=== PATIENT | female | born 1980 | race Caucasian/White ===

== ENCOUNTER 2017-03-23 23:15 | Inpatient (IN) | payer BC ==
[~2017-03-23] VITALS: Ht 167.6 cm; Wt 82.0 kg
[~2017-03-23 23:15] MED LIST: DOCU-30 PO; HYDR-3240 PO; IBUP-1222 PO
[2017-03-23] MEDS ORDERED: OXYTOCIN 30U/ 0.9% NaCL 500ML 500 ML IV PRN (23:36)
[2017-03-23] MEDS ORDERED: OXYTOCIN 30U/ 0.9% NaCL 500ML 500 ML IV ONE (23:36)
[2017-03-23] MEDS ORDERED: D5%-LACTATED RINGERS 1,000 ML IV SCH (23:36)
[2017-03-23] MEDS ORDERED: NEWBORN KIT ONE (23:59)
[2017-03-23] MEDS ORDERED: OXYTOCIN 30U/ 0.9% NaCL 500ML 500 ML ONE (23:59)
[2017-03-23] MEDS ORDERED: LIDOCAINE 1%, 20ML ONE (23:59)
[2017-03-23] MEDS ORDERED: MISOPROSTOL 200 MCG TABLET ONE (23:59)
[2017-03-24] MEDS ORDERED: ONDANSETRON 2MG/ML, 2ML IVPush PRN
[2017-03-24] MEDS ORDERED: FENTANYL PF 100 MCG/2ML IVPush PRN
[2017-03-24] MEDS: LACTATED RINGERS 1,000 ML IV SCH ×3 (00:03→12:04)
[2017-03-24 00:37] VITALS: BP 113/71
[2017-03-24] MEDS: LACTATED RINGERS 1,000 ML IVBOLUS PRN ×3 (07:45→10:54)
[2017-03-24] MEDS ORDERED: FENTANYL PF 100 MCG/2ML ONE (07:55)
[2017-03-24] MEDS: FENTANYL PF 100 MCG/2ML IV PRN ×2 (08:00→08:42)
[2017-03-24] MEDS ORDERED: FENTANYL/BUPIV./NS/PF 250 ML EPIDCONT SCH ×2 (08:17→09:12)
[2017-03-24] MEDS ORDERED: FENTANYL/BUPIV./NS/PF 250 ML EPIDCONT ONE (08:49)
[2017-03-24] MEDS ORDERED: LIDOCAINE/PF 1.5%-EPI 1:200K, 30ML ONE (08:50)
[2017-03-24] MEDS ORDERED: LACTATED RINGERS 1,000 ML IV SCH (09:12)
[2017-03-24] MEDS ORDERED: LACTATED RINGERS 1,000 ML IVBOLUS PRN (09:30)
[2017-03-24] MEDS ORDERED: ONDANSETRON 2MG/ML, 2ML IV PRN (17:00)
[2017-03-24] MEDS ORDERED: CALCIUM CARBONATE 500 MG TAB.CHEW PO PRN (17:00)
[2017-03-24] MEDS ORDERED: METHYLERGONOVINE 0.2 MG/ML IM PRN (17:00)
[2017-03-24] MEDS ORDERED: ACETAMINOPHEN 325 MG TABLET PO PRN (17:00)
[2017-03-24] MEDS ORDERED: MISOPROSTOL 200 MCG TABLET PR PRN (17:00)
[2017-03-24] MEDS ORDERED: CARBOPROST TROMETHAMINE 250 MCG/ML, 1ML IM PRN (17:00)
[2017-03-24] MEDS ORDERED: HYDROcodone/APAP 5/325 TABLET PO PRN ×2 (17:00)
[2017-03-24] MEDS: OXYTOCIN 30U/ 0.9% NaCL 500ML 500 ML IV SCH (17:05)
[2017-03-24] MEDS ORDERED: IBUPROFEN 600 MG TABLET ONE (18:43)
[2017-03-24] MEDS: IBUPROFEN 600 MG TABLET PO PRN (18:46)
[2017-03-24 19:30] VITALS: BP 100/55
[2017-03-25 00:15] VITALS: BP 96/55
[2017-03-25] MEDS: OXYTOCIN 30U/ 0.9% NaCL 500ML 500 ML IV SCH ×3 (02:52→22:52)
[2017-03-25] MEDS: DOCUSATE 100 MG CAPSULE PO PRN ×2 (03:39→12:27)
[2017-03-25] MEDS: IBUPROFEN 600 MG TABLET PO PRN ×3 (03:39→18:23)
[2017-03-25 03:45] VITALS: BP 99/64
[2017-03-25 07:01] VITALS: BP_SYST 100; BP_SYST 97; BP_DIAS 60; BP_DIAS 63
[2017-03-25] MEDS: LACTATED RINGERS 1,000 ML IVBOLUS PRN (08:02)
[2017-03-25] MEDS: PRENATAL VIT/IRON/FA 1 EACH TABLET PO SCH (12:27)
[2017-03-25 19:42] VITALS: BP 111/71
[2017-03-26 00:05] VITALS: BP 96/56
[2017-03-26 04:00] VITALS: BP 98/64
[2017-03-26] MEDS: OXYTOCIN 30U/ 0.9% NaCL 500ML 500 ML IV SCH (04:05)
[2017-03-26] MEDS: PRENATAL VIT/IRON/FA 1 EACH TABLET PO SCH (08:27)
[2017-03-26] MEDS: DOCUSATE 100 MG CAPSULE PO PRN (08:27)
[2017-03-26] MEDS: IBUPROFEN 600 MG TABLET PO PRN (08:27)
[2017-03-26 08:32] VITALS: BP 101/62
== END 2017-03-26 13:12 | disposition home or self-care (01) | DRG 775 ==
LOC: LDOP 23:15 → LDIP 23:33 → 2NW 03-24 19:48
PROVIDERS: ADMIT Obstetrics & Gynecology; ATTEND Obstetrics & Gynecology
PROC: 10E0XZZ Delivery of Products of Conception, External Approach (ICD-10-PCS; principal; 2017-03-24)
PROC: 0HQ9XZZ Repair Perineum Skin, External Approach (ICD-10-PCS; 2017-03-24)
PROC: 00HU33Z Insertion of Infusion Device into Spinal Canal, Percutaneous Approach (ICD-10-PCS; 2017-03-24)
PROC: 3E0R3CZ (ICD-10-PCS; 2017-03-24)
PROC: 3E033VJ Introduction of Other Hormone into Peripheral Vein, Percutaneous Approach (ICD-10-PCS; 2017-03-24)
DX: O42.913 Preterm premature rupture of membranes, unspecified as to length of time between rupture and onset of labor, third trimester (principal); O70.0 First degree perineal laceration during delivery; Z37.0 Single live birth; Z3A.36 36 weeks gestation of pregnancy
CPT/HCPCS: 36415; 82803; 85025; 86850; 86900; J3010; J2590; J7120